=== PATIENT | female | born 2005 | race Caucasian/White ===

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

== ENCOUNTER 2023-10-08 17:12 | Emergency (ER) | payer OTHER, SELFPAY ==
[2023-10-08 17:42] VITALS: BP 124/77; PULSE 77; RESP 14; TEMP 37; O2SAT 99; BMI 22.1
--- NOTE | 2023-10-08 22:08 | PC.NURSE ---
Called for patient in lobby; no answer. Pt left without being seen.
== END 2023-10-08 22:10 | disposition left against medical advice (07) ==
PROVIDERS: Emergency Provider Emergency Medicine
CPT/HCPCS: 99281